=== PATIENT | female | born 1965 | race African-American/Black ===

== ENCOUNTER 2016-06-08 23:24 | Emergency (ER) | payer MEDICARE, OTHER ==
[~2016-06-08] VITALS: Ht 167.6 cm; Wt 100.0 kg
[~2016-06-08 23:24] MED LIST: FERR325T30 PO; METF500T4 PO; MULT-1146 PO
[2016-06-08 23:47] VITALS: BP 161/90
[2016-06-09] LABS: BASOPHILS % 0.4 % (0.0-2.0); EOSINOPHILS % 2.7 % (0.0-5.0); HEMATOCRIT. 34.8 % (36.0-48.0); HEMOGLOBIN. 11.6 g/dL (12.0-16.0); LYMPHOCYTES % 33.7 % (20.0-50.0); MEAN CORPUSCULAR HEMOGLOBIN 27.8 pg (28.0-32.0); MEAN CORPUSCULAR HGB CONC 33.4 g/dL (31.0-37.0); MEAN CORPUSCULAR VOLUME 83.2 fL (81.0-99.0); MEAN PLATELET VOLUME 7.1 fl (7.4-10.4); MONOCYTES % 7.2 % (2.0-8.0); PLATELET 241 x1000/uL (130-400); RED BLOOD CELL COUNT 4.18 mill/uL (4.2-5.4); WHITE BLOOD COUNT 6.5 x1000/uL (4.5-11.0)
[2016-06-09 00:05] LABS: CHLORIDE 104 mEq/L (98-107); INDEX HEMOLYSI 1 (1-3); INDEX ICTERIC 1 (1-4); INDEX LIPEMIC 1 (1-3)
[2016-06-09 00:08] LABS: PROTHROMBIN TIME 10.7 sec
[2016-06-09 00:10] LABS: HCG SCREEN NEGATIVE
[2016-06-09 00:13] LABS: ALANINE AMINOTRANSFERASE 19 IU/L (13-61); ALBUMIN 3.6 g/dL (3.4-5.0); ANION GAP 11; CALCIUM 8.8 mg/dL (8.5-10.1); CARBON DIOXIDE 29 mEq/L (21-32); UREA NITROGEN BLOOD 10 mg/dL (7-21); eGFR > 60 mL/min (>60)
== END 2016-06-09 01:48 | disposition home or self-care (01) ==
LOC: ER 23:28
DX: N93.8 Other specified abnormal uterine and vaginal bleeding (principal); E11.9 Type 2 diabetes mellitus without complications
CPT/HCPCS: 36415; 76830; 76856; 80053; 84703; 85025; 85610; 86850; 86900; 99285

== ENCOUNTER 2019-12-05 21:50 | Emergency (ER) | payer BC, MEDICAID ==
[~2019-12-05] VITALS: Ht 162.6 cm; Wt 100.0 kg
[~2019-12-05 21:50] MED LIST changes: +METF-414 PO; -METF500T4 PO
[2019-12-05 21:52] VITALS: BP 136/80
== END 2019-12-06 00:19 | disposition home or self-care (01) ==
LOC: ER 21:50
DX: T78.49XA Other allergy, initial encounter (principal); E11.9 Type 2 diabetes mellitus without complications; Z79.899 Other long term (current) drug therapy; X58.XXXA Exposure to other specified factors, initial encounter
CPT/HCPCS: 93005; 99283